=== PATIENT | female | born 1955 | race Caucasian/White ===

== ENCOUNTER 2022-02-07 07:45 | Day surgery (SDC) | payer MEDICARE, BC ==
[~2022-02-07 07:45] MED LIST: Lactated Ringers 1,000 ML IV SCH; Lidocaine 1%/Sod Bicarbonate in NS 8.4% 1 ML Syringe IDERM PRN; Sodium Chloride 0.9% 10 ML Syringe FLUSH PRN; Sodium Chloride 0.9% 10 ML Syringe FLUSH SCH
[2022-02-07] MEDS ORDERED: Propofol 200 MG/20 ML SDV ONE (08:11)
[2022-02-07] MEDS ORDERED: Lidocaine 1% 4 ML ONE (08:12)
[2022-02-07 15:15] VITALS: BP 135/77; PULSE 60
== END 2022-02-07 10:41 | disposition home or self-care (01) ==
LOC: JD.SDS 07:45
PROVIDERS: ATTEND Surgery
DX: Z12.11 Encounter for screening for malignant neoplasm of colon (principal); D12.0 Benign neoplasm of cecum; K62.1 Rectal polyp; K64.4 Residual hemorrhoidal skin tags; J45.909 Unspecified asthma, uncomplicated; G43.909 Migraine, unspecified, not intractable, without status migrainosus; M85.80 Other specified disorders of bone density and structure, unspecified site; Z80.0 Family history of malignant neoplasm of digestive organs; Z79.899 Other long term (current) drug therapy; Z98.890 Other specified postprocedural states
CPT/HCPCS: 45380; J2704; J7120; 00812

== ENCOUNTER 2022-02-25 08:47 | Emergency (ER) | payer MEDICARE, BC ==
[2022-02-25] MEDS ORDERED: Cyclobenzaprine 10 MG Tab PO ONE (10:21)
[2022-02-25 10:52] VITALS: BP 125/87; PULSE 70
== END 2022-02-25 10:52 | disposition home or self-care (01) ==
LOC: JD.ED 08:47
DX: M54.50 Low back pain, unspecified (principal); J45.909 Unspecified asthma, uncomplicated; Z79.82 Long term (current) use of aspirin; Z79.899 Other long term (current) drug therapy
CPT/HCPCS: 99283

== ENCOUNTER 2024-11-18 08:01 | Day surgery (SDC) | payer MEDICARE ==
[~2024-11-18 08:01] MED LIST changes: +HYDROmorphone 0.5 MG/0.5 ML Syringe IVPUSH PRN; -Lactated Ringers 1,000 ML IV SCH; -Lidocaine 1%/Sod Bicarbonate in NS 8.4% 1 ML Syringe IDERM PRN; +Ondansetron 4 MG/2 ML SDV IVPUSH PRN; +fentaNYL 100 MCG/2 ML SDV IVPUSH PRN
[2024-11-18] MEDS: Lactated Ringers 1,000 ML IV SCH (08:20)
[2024-11-18] MEDS ORDERED: Propofol 200 MG/20 ML SDV ONE ×2 (08:43)
[2024-11-18] MEDS ORDERED: Lidocaine 2% 5 ML SDV ONE (08:43)
[2024-11-18 10:19] VITALS: BP 133/77; PULSE 64
== END 2024-11-18 10:15 | disposition home or self-care (01) ==
LOC: JD.SDS 08:01
PROVIDERS: ATTEND Surgery
DX: Z12.11 Encounter for screening for malignant neoplasm of colon (principal); K57.30 Diverticulosis of large intestine without perforation or abscess without bleeding; K64.8 Other hemorrhoids; K44.9 Diaphragmatic hernia without obstruction or gangrene; K21.9 Gastro-esophageal reflux disease without esophagitis; J45.909 Unspecified asthma, uncomplicated; Z79.899 Other long term (current) drug therapy; Z91.048 Other nonmedicinal substance allergy status
CPT/HCPCS: 43239; 45378; J2704; J7120; 00813; 88305; J3490

== ENCOUNTER 2025-01-06 07:30 | Observation (INO) | payer MEDICARE ==
[~2025-01-06 07:30] MED LIST changes: -HYDROmorphone 0.5 MG/0.5 ML Syringe IVPUSH PRN; -Ondansetron 4 MG/2 ML SDV IVPUSH PRN; -Sodium Chloride 0.9% 10 ML Syringe FLUSH SCH; -fentaNYL 100 MCG/2 ML SDV IVPUSH PRN
[2025-01-06] MEDS: Lactated Ringers 1,000 ML IV SCH ×2 (09:20→16:40)
[2025-01-06 11:05] LABS: BASOPHILS PERCENT AUTO 0.2 % (0.0-1.0); EOSINOPHILS ABSOLUTE AUTO 0.1 K/mm3 (0.0-0.4); EOSINOPHILS PERCENT AUTO 2.6 % (0.0-6.0); HEMATOCRIT 38.7 % (37.0-47.0); HEMOGLOBIN 12.9 gm/dl (12.0-16.0); IMMATURE GRAN ABSOLUTE AUTO 0.01 K/mm3 (0.00-0.05); IMMATURE GRAN PERCENT AUTO 0.2 % (0.0-0.4); LYMPHOCYTES ABSOLUTE AUTO 1.1 K/mm3 (1.0-4.8); LYMPHOCYTES PERCENT AUTO 24.1 % (24.0-44.0); MEAN CORPUSCULAR HGB CONC 33.3 g/dl (32.0-36.0); MEAN PLATELET VOLUME 8.4 fl (9.4-12.3); MONOCYTES ABSOLUTE AUTO 0.2 K/mm3 (0.0-0.8); MONOCYTES PERCENT AUTO 4.8 % (0.0-8.0); NEUTROPHILS ABSOLUTE AUTO 3.1 K/mm3 (1.8-7.7); NEUTROPHILS PERCENT AUTO 68.1 % (41.0-71.0); PLATELET COUNT,PLT 195 K/mm3 (150-400); RED BLOOD CELL COUNT 4.16 M/mm3 (4.10-5.30); WHITE BLOOD CELL COUNT,WBC 4.57 K/mm3 (3.9-11.3)
[2025-01-06] MEDS ORDERED: propofoL 500 MG/50 ML 100 ML ONE (11:23)
[2025-01-06] MEDS ORDERED: Midazolam 1 MG/ML 2 ML SDV ONE (11:23)
[2025-01-06] MEDS ORDERED: fentaNYL 250 MCG/5 ML SDV ONE (11:23)
[2025-01-06] MEDS ORDERED: Lidocaine 1% 5 ML VIAL ONE (11:29)
[2025-01-06] MEDS ORDERED: Rocuronium 50 MG/5 ML Vial ONE (11:29)
[2025-01-06] MEDS ORDERED: fentaNYL 100 MCG/2 ML SDV IVPUSH PRN (11:31)
[2025-01-06 11:38] LABS: A/G RATIO 1.1 (1-2); ALBUMIN 3.5 g/dl (3.4-5.0); ANION GAP 11.5 (5-15); BILIRUBIN TOTAL 0.3 mg/dL (0.2-1.0); BUN/CREATININE RATIO 18.9 (14-18); CREATININE 0.9 mg/dL (0.55-1.02); EST CRCL DRUG DOSING (CG) 53.09 mL/min; POTASSIUM,K 4.5 mEq/L (3.5-5.1); PROTEIN TOTAL,TP 6.7 g/dl (6.4-8.2)
[2025-01-06] MEDS ORDERED: ceFAZolin 2 GM Vial ONE (11:53)
[2025-01-06] MEDS ORDERED: Labetalol 100 MG/20 ML MDV ONE (12:08)
[2025-01-06] MEDS ORDERED: Sugammadex Sodium 200 MG/2 ML VIAL IV ONE (13:08)
[2025-01-06] MEDS: Bupivacaine 0.5% 30 ML SDV ONE (13:13)
[2025-01-06] MEDS: EPINEPHrine 1 MG/ML SDV ONE (13:13)
[2025-01-06] MEDS ORDERED: Lactated Ringers 1,000 ML ONE (13:13)
[2025-01-06] MEDS ORDERED: Albuterol 6.7 GM Inhaler INH PRN (14:33)
[2025-01-06] MEDS ORDERED: Ondansetron 4 MG Tab.DIS PO PRN (14:34)
[2025-01-06] MEDS ORDERED: Promethazine 25 MG Tab PO PRN (14:34)
[2025-01-06] MEDS ORDERED: HYDROmorphone 0.5 MG/0.5 ML Syringe IVPUSH PRN (14:34)
[2025-01-06] MEDS ORDERED: Benzocaine/Cetylpyridinium/Menthol Lozenge MUCMEM PRN (14:39)
[2025-01-06] MEDS ORDERED: Simethicone 80 MG Tab.Chew PO PRN (14:39)
[2025-01-06] MEDS ORDERED: diphenhydrAMINE 50 MG/ML SDV IVPUSH PRN (14:39)
[2025-01-06] MEDS: Ondansetron 4 MG/2 ML SDV IVPUSH PRN (15:27)
[2025-01-06] MEDS: HYDROmorphone 0.5 MG/0.5 ML Syringe IVPUSH PRN (15:32)
[2025-01-06] MEDS: Sodium Chloride 0.9% 10 ML Syringe FLUSH SCH (17:00)
[2025-01-07 05:26] LABS: HEMATOCRIT 39.1 % (37.0-47.0); HEMOGLOBIN 13.1 gm/dl (12.0-16.0); MEAN CORPUSCULAR HEMOGLOBIN 31.9 pg (28.0-32.0); MEAN CORPUSCULAR HGB CONC 33.5 g/dl (32.0-36.0); MEAN CORPUSCULAR VOLUME 95.1 fl (83.0-99.0); MEAN PLATELET VOLUME 9.2 fl (9.4-12.3); PLATELET COUNT,PLT 185 K/mm3 (150-400); RED BLOOD CELL COUNT 4.11 M/mm3 (4.10-5.30); WHITE BLOOD CELL COUNT,WBC 6.38 K/mm3 (3.9-11.3)
[2025-01-07 05:27] LABS: ANION GAP 11.4 (5-15); BUN/CREATININE RATIO 13.3 (14-18); CREATININE 0.9 mg/dL (0.55-1.02); EST CRCL DRUG DOSING (CG) 50.94 mL/min; POTASSIUM,K 4.4 mEq/L (3.5-5.1)
[2025-01-07] MEDS: oxyCODONE 5 MG Tab PO PRN (07:24)
[2025-01-07] MEDS: Pramipexole 0.5 MG Tab PO SCH (08:12)
[2025-01-07] MEDS: Ketorolac 15 MG/ML SDV IVPUSH ONE (08:12)
[2025-01-07] MEDS ORDERED: Non-Formulary Medication 1 Each (Fexofenadine/Pseudoephedrine [Allegra-D 24 Hour Tablet] 1 PO SCH (09:00)
[2025-01-07] MEDS: Acetaminophen 325 MG Tab PO PRN (11:59)
[2025-01-07 15:20] VITALS: BP 121/59; PULSE 64
== END 2025-01-07 14:02 | disposition home or self-care (01) ==
LOC: INTOOBSV 08:54 → JD.MS 08:54
PROVIDERS: ADMIT Surgery; ATTEND Surgery
DX: K44.9 Diaphragmatic hernia without obstruction or gangrene (principal); K21.9 Gastro-esophageal reflux disease without esophagitis; J45.909 Unspecified asthma, uncomplicated
CPT/HCPCS: 36415; 80048; 80053; 85025; 85027; 94760; 94761; A9270-GY; J0171; J0665; J0690; J1885; J1920; J2003; J2250; J2405; J2704; J3010; J3490; J7120